=== PATIENT | female | born 1970 | race Caucasian/White ===

== ENCOUNTER 2016-06-13 23:08 | Emergency (ER) | payer MEDICAID ==
[~2016-06-13] VITALS: Ht 162.6 cm; Wt 81.0 kg
[~2016-06-13 23:08] MED LIST: IOHEXOL-350 100 ML BOTTLE ONE; SODIUM CHLORIDE 0.9% 10ML VIAL ONE
[2016-06-14] MEDS ORDERED: ONDANSETRON HCL 4MG/2ML VIAL IV STA (00:42)
[2016-06-14] MEDS ORDERED: MORPHINE SULFATE 4 MG/ML CPJ (NOT FOR IM USE) IV STA (00:42)
[2016-06-14] MEDS ORDERED: NITROGLYCERIN OINT 1GM/INCH UDPKT TD ONE (00:45)
[2016-06-14 01:07] LABS: BASOPHILS % 0.7 % (0.0-2.0); HEMATOCRIT. 40.9 % (36.0-48.0); HEMOGLOBIN. 13.8 g/dL (12.0-16.0); LYMPHOCYTES % 40.1 % (20.0-50.0); MEAN CORPUSCULAR HGB CONC 33.7 g/dL (31.0-37.0); MEAN CORPUSCULAR VOLUME 88.8 fL (81.0-99.0); MEAN PLATELET VOLUME 9.8 fl (7.4-10.4); MONOCYTES % 8.8 % (2.0-8.0); NEUTROPHILS % 48.4 % (40.0-76.0); PLATELET 194 x1000/uL (130-400); RED BLOOD CELL COUNT 4.61 mill/uL (4.2-5.4); WHITE BLOOD COUNT 5.5 x1000/uL (4.5-11.0)
[2016-06-14 01:19] LABS: ALANINE AMINOTRANSFERASE 45 IU/L (13-61); ALBUMIN 3.7 g/dL (3.4-5.0); ANION GAP 12; CALCIUM 8.9 mg/dL (8.5-10.1); CARBON DIOXIDE 25 mEq/L (21-32); CHLORIDE 104 mEq/L (98-107); INDEX HEMOLYSI 1 (1-3); INDEX ICTERIC 1 (1-4); INDEX LIPEMIC 1 (1-3); NT PRO B-TYPE NATRIURETIC PEP 43 pg/mL (5-125); TROPONIN I < 0.02 ng/mL (0.00-0.04); UREA NITROGEN BLOOD 11 mg/dL (7-21); eGFR > 60 mL/min (>60)
[2016-06-14] MEDS ORDERED: HYDROCODONE/ACETAMINOPHEN 5/325MG TABLET PO ONE (05:30)
[2016-06-14 06:16] VITALS: BP 158/92
== END 2016-06-14 06:27 | disposition home or self-care (01) ==
LOC: ER 23:30
DX: R07.9 Chest pain, unspecified (principal); I10 Essential (primary) hypertension; F14.10 Cocaine abuse, uncomplicated
CPT/HCPCS: 36415; 71010; 71275; 80053; 81025; 83880; 84484; 85025; 85379; 93005; 96374; 96375; 99285; A4216; J2270; J2405; Q9967; Z7610

== ENCOUNTER 2021-05-08 21:50 | Emergency (ER) | payer OTHER ==
[~2021-05-08] VITALS: Ht 154.9 cm; Wt 64.0 kg
[2021-05-08] MEDS ORDERED: METOCLOPRAMIDE HCL 10MG/2ML VIAL IV ONE (22:30)
[2021-05-08] MEDS ORDERED: SODIUM CHLORIDE 0.9% 1,000 ML IV ONE (22:30)
[2021-05-08] MEDS ORDERED: DIPHENHYDRAMINE 50MG/ML VIAL IV ONE (22:30)
[2021-05-08 22:59] LABS: BASOPHILS % 0.3 % (0.0-2.0); EOSINOPHILS % 0.5 % (0.0-5.0); HEMATOCRIT. 41.3 % (36.0-48.0); HEMOGLOBIN. 13.8 g/dL (12.0-16.0); LYMPHOCYTES % 17.3 % (20.0-50.0); MEAN CORPUSCULAR HEMOGLOBIN 28.3 pg (28.0-32.0); MEAN CORPUSCULAR VOLUME 84.5 fL (81.0-99.0); MEAN PLATELET VOLUME 10.2 fl (7.4-10.4); MONOCYTES % 3.8 % (2.0-8.0); NEUTROPHILS % 78.1 % (40.0-76.0); PLATELET 170 x1000/uL (130-400); RED BLOOD CELL COUNT 4.88 mill/uL (4.2-5.4); RED CELL DISTRIBUTION WIDTH 13.9 % (11.6-14.6)
[2021-05-08 23:06] LABS: CHLORIDE 108 mEq/L (98-107)
[2021-05-08 23:10] LABS: ETHANOL BLOOD < 10 mg/dL
[2021-05-09] MEDS ORDERED: KETOROLAC 30MG/ML VIAL IV ONE (01:00)
[2021-05-09 01:16] LABS: *AMPHETAMINES SCREEN URINE PRESUMTIVE POSITIVE (NEGATIVE); *BARBITURATES SCREEN URINE NEGATIVE (NEGATIVE); *BENZODIAZEPINES SCREEN URINE NEGATIVE (NEGATIVE); *COCAINE SCREEN URINE NEGATIVE (NEGATIVE)
[2021-05-09 01:17] LABS: CANNABINOID URINE SCREEN NEGATIVE (NEGATIVE); METHADONE URINE SCREEN NEGATIVE (NEGATIVE); OPIATES URINE SCREEN NEGATIVE (NEGATIVE); PHENCYCLIDINE URINE SCREEN NEGATIVE (NEGATIVE)
[2021-05-09] MEDS ORDERED: ACET-2708 MT (01:23)
[2021-05-09] MEDS ORDERED: ACETAMINOPHEN 325MG TABLET PO ONE (01:30)
[2021-05-09 01:37] VITALS: BP 144/96
== END 2021-05-09 01:43 | disposition home or self-care (01) ==
LOC: ER 21:50
DX: R51.9 Headache, unspecified (principal); F15.10 Other stimulant abuse, uncomplicated; F12.10 Cannabis abuse, uncomplicated; F17.200 Nicotine dependence, unspecified, uncomplicated; F14.10 Cocaine abuse, uncomplicated; I10 Essential (primary) hypertension; Z98.890 Other specified postprocedural states
CPT/HCPCS: 36415; 70450; 80053; 80305; 80320; 84484; 85025; 93005; 96374; 96375; 99285; J1200; J1885; J2765; J7030; G0480

== ENCOUNTER 2021-10-12 05:59 | Emergency (ER) | payer MEDICAID, OTHER ==
[~2021-10-12] VITALS: Ht 157.5 cm; Wt 65.0 kg
[~2021-10-12 05:59] MED LIST changes: +ACET-2708 MT; +CEPH500C2 MT; +IBUP-2029 MT; -IOHEXOL-350 100 ML BOTTLE ONE; -SODIUM CHLORIDE 0.9% 10ML VIAL ONE; +SULF1TAB48 MT
[2021-10-12] MEDS ORDERED: KETOROLAC 15MG/ML VIAL IV ONE (06:45)
[2021-10-12 06:47] LABS: BASOPHILS % 0.2 % (0.0-2.0); EOSINOPHILS % 0.1 % (0.0-5.0); HEMATOCRIT. 40.3 % (36.0-48.0); HEMOGLOBIN. 13.4 g/dL (12.0-16.0); LYMPHOCYTES % 10.4 % (20.0-50.0); MEAN CORPUSCULAR HEMOGLOBIN 28.1 pg (28.0-32.0); MEAN CORPUSCULAR VOLUME 84.7 fL (81.0-99.0); MEAN PLATELET VOLUME 9.7 fl (7.4-10.4); MONOCYTES % 3.8 % (2.0-8.0); NEUTROPHILS % 85.5 % (40.0-76.0); PLATELET 192 x1000/uL (130-400); RED BLOOD CELL COUNT 4.76 mill/uL (4.2-5.4); RED CELL DISTRIBUTION WIDTH 13.7 % (11.6-14.6)
[2021-10-12 07:01] LABS: CHLORIDE 106 mEq/L (98-107)
[2021-10-12 07:38] LABS: CLARITY URINE CLOUDY (CLEAR); COLOR URINE YELLOW (YELLOW); KETONES URINE NEGATIVE (NEGATIVE); LEUKOCYTE ESTERASE URINE NEGATIVE (NEGATIVE); NITRITE URINE NEGATIVE (NEGATIVE); OCCULT BLOOD URINE 2+ (NEGATIVE); PH URINE 8.5 (4.5-8.0); PROTEIN URINE NEGATIVE (NEGATIVE); SPECIFIC GRAVITY URINE 1.013 (1.005-1.030); UROBILINOGEN URINE 0.2 E.U./dL (0.2-1.0)
[2021-10-12] MEDS ORDERED: KETOROLAC 30MG/ML VIAL IV STA (07:52)
[2021-10-12] MEDS ORDERED: SODIUM CHLORIDE 0.9% 1,000 ML IV ONE (08:00)
[2021-10-12] MEDS ORDERED: HYDR-4001 MT (13:02)
[2021-10-12] MEDS ORDERED: TAMS-11 MT (13:02)
[2021-10-12] MEDS ORDERED: IBUP-2029 MT (13:02)
[2021-10-12] MEDS ORDERED: AMOX1TAB16 MT (13:02)
[2021-10-12] MEDS ORDERED: ONDANSETRON HCL 4MG/2ML INJ IV STA (13:06)
[2021-10-12] MEDS ORDERED: MORPHINE SULFATE 4 MG/ML CPJ (NOT FOR IM USE) IV STA (13:06)
[2021-10-12 13:28] VITALS: BP 147/59
== END 2021-10-12 13:29 | disposition home or self-care (01) ==
LOC: ER 05:59
DX: N23 Unspecified renal colic (principal); I10 Essential (primary) hypertension; Z79.899 Other long term (current) drug therapy
CPT/HCPCS: 36415; 74176; 76705; 80053; 81003; 83690; 85025; 93005; 96361; 96374; 96375; 96376; 99285; J1885; J2270; J2405; J7030

== ENCOUNTER 2022-03-24 13:18 | Inpatient (IN) | payer OTHER ==
[~2022-03-24] VITALS: Ht 154.9 cm; Wt 52.6 kg
[~2022-03-24 13:18] MED LIST changes: +AMOX1TAB16 MT; +HYDR-4001 MT; +TAMS-11 MT
[2022-03-24 17:14] LABS: BASOPHILS % 0.3 % (0.0-2.0); EOSINOPHILS % 0.4 % (0.0-5.0); HEMATOCRIT. 36.8 % (36.0-48.0); HEMOGLOBIN. 12.8 g/dL (12.0-16.0); LYMPHOCYTES % 29.3 % (20.0-50.0); MEAN CORPUSCULAR HEMOGLOBIN 29.7 pg (28.0-32.0); MEAN CORPUSCULAR VOLUME 85.5 fL (81.0-99.0); MEAN PLATELET VOLUME 9.8 fl (7.4-10.4); MONOCYTES % 6.3 % (2.0-8.0); NEUTROPHILS % 63.7 % (40.0-76.0); PLATELET 166 x1000/uL (130-400); RED CELL DISTRIBUTION WIDTH 14.1 % (11.6-14.6)
[2022-03-24 17:16] LABS: CHLORIDE 107 mEq/L (98-107)
[2022-03-24] MEDS ORDERED: ASPIRIN 81MG TABLET PO ONE (20:15)
[2022-03-24] MEDS ORDERED: ACETAMINOPHEN 325MG TABLET PO ONE (20:15)
[2022-03-24 22:15] LABS: CLARITY URINE CLEAR (CLEAR); COLOR URINE YELLOW (YELLOW); KETONES URINE NEGATIVE (NEGATIVE); LEUKOCYTE ESTERASE URINE NEGATIVE (NEGATIVE); NITRITE URINE NEGATIVE (NEGATIVE); OCCULT BLOOD URINE TRACE (NEGATIVE); PROTEIN URINE NEGATIVE (NEGATIVE); SPECIFIC GRAVITY URINE 1.018 (1.005-1.030); UROBILINOGEN URINE 0.2 E.U./dL (0.2-1.0)
[2022-03-25 10:07] VITALS: BP 131/70
[2022-03-25] MEDS ORDERED: ONDANSETRON HCL 4MG/2ML INJ IV PRN (10:45)
[2022-03-25] MEDS ORDERED: ACETAMINOPHEN 325MG TABLET PO PRN (10:45)
[2022-03-25 10:59] VITALS: BP 145/80
[2022-03-25] MEDS ORDERED: AMLODIPINE 2.5MG TABLET PO NR (11:45)
[2022-03-25 16:00] LABS: BASOPHILS % 0.3 % (0.0-2.0); EOSINOPHILS % 2.3 % (0.0-5.0); HEMATOCRIT. 38.8 % (36.0-48.0); HEMOGLOBIN. 13.1 g/dL (12.0-16.0); LYMPHOCYTES % 38.9 % (20.0-50.0); MEAN CORPUSCULAR HEMOGLOBIN 28.8 pg (28.0-32.0); MEAN CORPUSCULAR VOLUME 85.5 fL (81.0-99.0); MEAN PLATELET VOLUME 10.2 fl (7.4-10.4); MONOCYTES % 6.2 % (2.0-8.0); NEUTROPHILS % 52.3 % (40.0-76.0); PLATELET 176 x1000/uL (130-400); RED BLOOD CELL COUNT 4.54 mill/uL (4.2-5.4); RED CELL DISTRIBUTION WIDTH 14.2 % (11.6-14.6)
[2022-03-25 17:41] LABS: CHLORIDE 106 mEq/L (98-107)
[2022-03-25] MEDS ORDERED: AMLODIPINE 2.5MG TABLET PO SCH (21:00)
[2022-03-26] MEDS ORDERED: ASPIRIN 81MG TABLET PO SCH (09:00)
== END 2022-03-25 17:42 | disposition home or self-care (01) | DRG 203 ==
LOC: ER 13:18 → MICUSO 23:30 → EDBEDREQ 23:32 → EDBEDREQTM 23:32 → 7WST 03-25 10:10
PROVIDERS: ADMIT Internal Medicine; ATTEND Internal Medicine
DX: M94.0 Chondrocostal junction syndrome [Tietze] (principal); E87.6 Hypokalemia; I25.2 Old myocardial infarction; F10.10 Alcohol abuse, uncomplicated; F17.210 Nicotine dependence, cigarettes, uncomplicated; I10 Essential (primary) hypertension; J44.9 Chronic obstructive pulmonary disease, unspecified; Z79.82 Long term (current) use of aspirin; Z87.01 Personal history of pneumonia (recurrent); Z86.16 Personal history of COVID-19; Z82.49 Family history of ischemic heart disease and other diseases of the circulatory system
CPT/HCPCS: 36415; 71045; 80048; 80053; 80061; 81003; 83880; 84484; 85025; 93005; 93306; 93971; 99285

== ENCOUNTER 2022-08-31 17:47 | Emergency (ER) | payer OTHER ==
[~2022-08-31] VITALS: Ht 157.5 cm; Wt 59.0 kg
[2022-08-31 17:53] VITALS: BP 154/89
== END 2022-09-01 00:35 | disposition left against medical advice (07) ==
LOC: ER 17:47
DX: L29.9 Pruritus, unspecified (principal); Z53.21 Procedure and treatment not carried out due to patient leaving prior to being seen by health care provider
CPT/HCPCS: 99281

== ENCOUNTER 2024-06-01 19:59 | Emergency (ER) | payer OTHER ==
[~2024-06-01] VITALS: Ht 157.5 cm; Wt 66.0 kg
[2024-06-01] MEDS: ONDANSETRON HCL 4MG/2ML INJ IV NR (22:12)
[2024-06-01] MEDS: MORPHINE SULFATE 4 MG/ML INJ (FOR IV/IM USE) IV NR (22:12)
[2024-06-01 23:21] VITALS: O2SAT 100
[2024-06-01] MEDS: ONDANSETRON HCL 4MG/2ML INJ IV ONE (23:56)
[2024-06-01] MEDS: PROPOFOL 200MG/20ML VIAL IV ONE (23:56)
[2024-06-02] MEDS ORDERED: IBUP-2029 MT (01:12)
[2024-06-02 01:14] VITALS: TEMP 36.9
[2024-06-02 02:50] VITALS: BP 121/74; PULSE 80; RESP 18; O2SAT 100
== END 2024-06-02 02:51 | disposition home or self-care (01) ==
LOC: ER 19:59
DX: S52.611A Displaced fracture of right ulna styloid process, initial encounter for closed fracture (principal); I10 Essential (primary) hypertension; R51.9 Headache, unspecified; Z79.899 Other long term (current) drug therapy; Z98.890 Other specified postprocedural states; W11.XXXA Fall on and from ladder, initial encounter; Y93.89 Activity, other specified; Y92.89 Other specified places as the place of occurrence of the external cause; Y99.8 Other external cause status
CPT/HCPCS: 73110; 70450; 72125; 25605; 96374; 96375; 99152; 99285; J2405; J2704; J2270; Z7610

== ENCOUNTER 2024-06-11 11:21 | Emergency (ER) | payer OTHER ==
[~2024-06-11] VITALS: Ht 157.5 cm; Wt 63.5 kg
[2024-06-11 11:40] VITALS: O2SAT 98
[2024-06-11] MEDS: IBUPROFEN 600MG TABLET PO ONE (13:06)
[2024-06-11] MEDS ORDERED: NIZOS TP (13:32)
[2024-06-11 13:39] VITALS: BP 134/84; PULSE 85; RESP 18; TEMP 36.4; O2SAT 98
== END 2024-06-11 13:40 | disposition home or self-care (01) ==
LOC: ER 11:21
DX: S52.91XA Unspecified fracture of right forearm, initial encounter for closed fracture (principal); L21.9 Seborrheic dermatitis, unspecified; I10 Essential (primary) hypertension; X58.XXXA Exposure to other specified factors, initial encounter; Y93.89 Activity, other specified; Y92.89 Other specified places as the place of occurrence of the external cause; Y99.8 Other external cause status
CPT/HCPCS: 99283; A4565

== ENCOUNTER 2024-12-08 23:29 | Emergency (ER) | payer MEDICAID, OTHER ==
[~2024-12-08] VITALS: Ht 154.9 cm; Wt 70.0 kg
[~2024-12-08 23:29] MED LIST changes: +IBUP-1455 MT; -IBUP-2029 MT; +NIZOS TP; -TAMS-11 MT; +TAMS-54 MT
[2024-12-08 23:31] VITALS: O2SAT 100
[2024-12-09 00:23] LABS: BASOPHILS % 0.4 % (0.0-2.0); EOSINOPHILS % 3.7 % (0.0-5.0); HEMATOCRIT. 34.7 % (36.0-48.0); HEMOGLOBIN. 11.5 g/dL (12.0-16.0); LYMPHOCYTES % 33.3 % (20.0-50.0); MEAN PLATELET VOLUME 9.6 fl (7.4-10.4); MONOCYTES % 8.9 % (2.0-8.0); NEUTROPHILS % 53.7 % (40.0-76.0); PLATELET 161 x1000/uL (130-400); RED BLOOD CELL COUNT 3.93 mill/uL (4.2-5.4); RED CELL DISTRIBUTION WIDTH 14.1 % (11.6-14.6)
[2024-12-09 00:37] LABS: CREATININE 1.2 mg/dL (0.6-1.0)
[2024-12-09 00:38] LABS: TROPONIN I HIGH SENSITIVITY 4 ng/L (3.0-34); UREA NITROGEN BLOOD 23 mg/dL (9-23)
[2024-12-09 00:39] LABS: ASPARTATE AMINOTRANSFERASE 12 IU/L (<34)
[2024-12-09 00:40] LABS: BILIRUBIN DIRECT < 0.1 mg/dL (<=3.0); BILIRUBIN TOTAL 0.3 mg/dL (0.1-1.0); PROTEIN TOTAL 6.7 g/dL (6.0-8.3)
[2024-12-09 01:12] LABS: ETHANOL BLOOD < 10 mg/dL (<10)
[2024-12-09] MEDS ORDERED: LOTEN PO ONE (03:30)
[2024-12-09] MEDS: LISINOPRIL 10MG TABLET PO NR (03:49)
[2024-12-09] MEDS: ACETAMINOPHEN 325MG TABLET PO ONE (03:50)
[2024-12-09 03:53] LABS: CLARITY URINE CLEAR (CLEAR); COLOR URINE YELLOW (YELLOW); GLUCOSE URINE NEGATIVE (NEGATIVE); KETONES URINE NEGATIVE (NEGATIVE); LEUKOCYTE ESTERASE URINE NEGATIVE (NEGATIVE); NITRITE URINE NEGATIVE (NEGATIVE); OCCULT BLOOD URINE NEGATIVE (NEGATIVE); PH URINE 7.5 (4.5-8.0); PROTEIN URINE NEGATIVE (NEGATIVE); SPECIFIC GRAVITY URINE 1.016 (1.005-1.030); UROBILINOGEN URINE 0.2 E.U./dL (0.2-1.0)
[2024-12-09 04:07] LABS: *AMPHETAMINES SCREEN URINE PRESUMPTIVE POSITIVE (NEGATIVE); *BARBITURATES SCREEN URINE NEGATIVE (NEGATIVE); *BENZODIAZEPINES SCREEN URINE NEGATIVE (NEGATIVE); *COCAINE SCREEN URINE PRESUMPTIVE POSITIVE (NEGATIVE); CANNABINOID URINE SCREEN PRESUMPTIVE POSITIVE (NEGATIVE); ECSTASY MDMA SCREEN URINE NEGATIVE (NEGATIVE); METHADONE URINE SCREEN NEGATIVE (NEGATIVE); OPIATES URINE SCREEN NEGATIVE (NEGATIVE); PHENCYCLIDINE URINE SCREEN NEGATIVE (NEGATIVE)
[2024-12-09] MEDS: IOHEXOL-300 100 ML BOTTLE ONE (05:16)
[2024-12-09] MEDS: ARIPIPRAZOLE 5MG TABLET PO SCH (09:00)
[2024-12-10] MEDS: ACETAMINOPHEN 325MG TABLET PO ONE (21:32)
[2024-12-11] MEDS: HYDROXYZINE 25MG TABLET PO PRN (09:59)
[2024-12-12 06:00] VITALS: BP 163/103; PULSE 92; RESP 16; TEMP 37.1; O2SAT 100
== END 2024-12-12 09:17 | disposition home or self-care (01) ==
LOC: ER 23:29
DX: F22 Delusional disorders (principal); R06.02 Shortness of breath; I10 Essential (primary) hypertension; H40.9 Unspecified glaucoma; Z98.890 Other specified postprocedural states; Z20.822 Contact with and (suspected) exposure to COVID-19
CPT/HCPCS: 80076; 80305; 80048; 81003; 80307; 80329; 80320; 83880; 85025; 84484; 36415; 71045; 93005; 99285; 87426; 74177; Q9967 ×2; G0480